=== PATIENT | female | born 1980 | race Caucasian/White ===

== ENCOUNTER → 2016-11-26 | Outpatient (CLI) | payer BC ==
[~2016-11-26] MED LIST: ALBUTEROL INHALER INH; EXCEDRIN PO; IMITREX PO; PERCOCET PO; SPIRIVA INH
--- NOTE | 2016-11-30 00:07 | ECWPNPC ---
PATIENT NAME: NAOMI HOLLIS : 1980 GENDER: FEMALE VISIT DATE: 11/26/2016 DISCHARGE DATE: 11/26/16 1437 VISIT LOCKED DATE TIME: PHYSICIAN: ALEX MCNEAL RESOURCE: ALEX MCNEAL REASON FOR APPOINTMENT 1. BACK HISTORY OF PRESENT ILLNESS NEW PATIENT CONSULT: WHEN DID YOUR PAIN FIRST START? . BRIEFLY DESCRIBE HOW YOUR PAIN STARTED? . HOW DOES YOUR PAIN CHANGE WITH TIME? . DOES YOUR PAIN AWAKEN YOU FROM SLEEP? . HOW MANY HOURS OF SLEEP DO YOU NORMALLY GET? . ANY DIAGNOSTIC TESTING? . FACILITY WHERE TESTS WERE DONE? ____. PAIN TREATMENT TREATMENT YES CANCER HAVE YOU EVER HAD ANY TYPE OF CANCER?NO NO. PAIN SCREENING: PATIENT HAS A COMPLAINT OF ACUTE OR CHRONIC PAIN YES FALL RISK SCREENING: SCREENING :NO FALLS IN THE PAST YEAR LITTLE INVENTORY: QUESTIONNAIRE ASSESSEDYES SCORE VALUE CALCULATED YES SCORE: 2/63 DENIES SUICIDAL OR HOMICIDAL IDEATION TODAY'S VISIT: NOTES: REFERRED BY NEUROLOGY FOR FURTHER EVALUATION OF BACK PAIN. REPRTS SHE WAS [employer]IVE [employer] IN 2000 AND FELL FROM A TOWER 50 FEET. WAS HOSPITALIZED FOR OVER 1 WEEK FOR BACK PAIN AT THAT TIME. THIS DID IMPROVE AND OVE RTHE LAST YEAR HAS BEEN EXPERIENCING MARKED INCREASE IN BACK WITH RADIATION TO BOTHANTERIOR THIGH. PAIN CAN RADIATION ALL THE WAY TO THE TOES, LEFT> RIGHT. IS HAVING INTERMITTANT NUMBNESS AND TINGLING IN THE FEET, PARTICULARLY WHEN SITTING OR STANDING. NO SPECIFIC WEAKNESS NOTED. HAS ATTENDED PHYSICAL THERAPY IN PAST. HAD SOME TYPE OF INJECTED TO THE SPINE DONE YEARS AGO IN [place] WHICH DID PROVODE SOME TEMPRARY RELIEF. . CURRENT MEDICATIONS TAKING ALBUTEROL SULFATE HFA 108 (90 BASE) MCG/ACT AEROSOL SOLUTION 2 PUFFS NEEDED INHALATION PRN, NOTES: PRN TAKING ADVAIR DISKUS 500-50 MCG/DOSE MISCELLANEOUS INHALATION , NOTES: PRN TAKING IMITREX 100 MG TABLET 1 TABLET NEEDED ORALLY TWICE A DAY, NOTES: PRN TAKING ZONISAMIDE 25 MG CAPSULE 2 CAPSULES ORALLY TWICE A DAY TAKING IBUPROFEN 800 MG TABLET 1 TABLET ORALLY THREE TIMES A DAY NOT-TAKING KEFLEX 500 MG CAPSULE 1 CAPSULE ORALLY TWICE A DAY NOT-TAKING TESSALON PERLES 100 MG CAPSULE 1 CAPSULE NEEDED ORALLY THREE TIMES A DAY MEDICATION LIST REVIEWED AND RECONCILED WITH THE PATIENT PAST MEDICAL HISTORY KIDNEY STONE ASTHMA CHRONIC PAIN MIGRAINES ALLERGIES N.K.D.A. SURGICAL HISTORY HYSTERECTOMY 04/2013 09/2010 APPENDECTOMY 1997 LAPROSCOPIC FOR ENDOMETRIOSIS 1998 RIGHT ESWL 12/06/13 FAMILY HISTORY FATHER: ALIVE MOTHER: ALIVE SIBLINGS: ALIVE SON(S): ALIVE DAUGHTER(S): ALIVE IDENTICAL TWIN SISTER OLDEST DAUGHTER IS BEING EVALUATED FOR HER MIGRAINES. 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 DIET: REGULAR. EXERCISE: WALKS, DAILY. MARITAL STATUS: . OTHERS AT HOME: SPOUSE, CHILDREN. PETS: DOG AND A CAT. ORIENTAL ORTHODOX: NO PREFERENCE. PSYCHOLOGICAL HX TREATMENTNO PAIN CLINIC PFS, CLERGY, PUBLIC HEALTH REFERRALS CLERGY REFERRAL NEEDED?NO WAS THE PROVIDER NOTIFIED OF ANY PERTINENT INFO?NO PFS REFERRAL NEEDED?NO PUBLIC HEALTH REFERRAL NEEDED?NO PATIENT: ____. ADVANCED DIRECTIVES HEALTH CARE PROXY?NO POWER OF ENVIRONMENTAL ENGINEERING ASSISTANT?NO HOSPITALIZATION/MAJOR DIAGNOSTIC PROCEDURE SURGICALY RELATED REVIEW OF SYSTEMS CONSTITUTIONAL: ANY CHANGE IN YOUR MEDICAL CONDITION? NO . CHILLS NO . FEVER NO . INFECTION: DO YOU HAVE NEW INFECTIONS? NO . DO YOU HAVE HISTORY OF MRSA? NO . MUSCULOSKELETAL: ANY NEW PATTERNS OF PAIN OR NUMBNESS? NO . SYTEMIC LUPUS NO . GASTROENTEROLOGY: ANY NEW CHANGE IN BOWEL CONTROL? NO . BARRETTS ESOPHAGUS NO . CIRRHOSIS NO . HEPATITIS NO . LIVER FAILURE NO . ACID REFLUX NO . UNEXPLAINED WEIGHT LOSS NO . GENITOURINARY: ANY NEW CHANGE IN BLADDER CONTROL? NO . IS THERE A CHANCE YOU COULD BE ? NO . HEMATOLOGY/LYMPH: DO YOU TAKE ANY BLOOD THINNERS? (FOR EXAMPLE- COUMADIN, PLAVIX, AGGRENOX, PLATEL, PRADAXA, OR XARELTO) NO . WHEN WAS YOUR LAST DOSE? DATE: TIME: . LOW PLATELET COUNT NO . SICKLE CELL DISEASE NO . VON WILLIEBRANDS NO . FACTOR V LEIDEN NO . THALLASEMIA NO . ANEMIA NO . EASY BRUISING NO . NEUROLOGY: MYAASTHENIA GRAVIS NO . MIGRAINES CURRENTLY BEING ACTIVELY FOLLOWED FOR THIS BY NEUROLOGY. MIGRAINES 2-3 EVENTS FOR WEEK WITH INCEEASE OVER LAST YEAR IN FREQUENCY AND INTENSITY. . CARDIOLOGY: DO YOU HAVE A PACEMAKER OR DEFIBRILLATOR? NO . ANGINA NO . HEART ATTACK NO . HEART SURGERY NO . CONGESTIVE HEART FAILURE/FLUID OVERLOAD NO . CHEST PAIN NO . HIGH BLOOD PRESSURE NO . IRREGULAR HEART BEAT NO . RESPIRATORY: HAVE YOU BEEN SICK IN THE PAST WEEK? NO . FEVER NO . FLU LIKE SYMPTOMS? NO . CPAP NO - WAITING FOR POST SLEEP APNEA STUDY FOLLOWUP . BYPAP NO . ASTHMA NO . EMPHYSEMA NO . CHRONIC LUNG DISEASES NO . SHORTNESS OF BREATH ON EXERTION NO . DO YOU USE ANY TYPE OF TOBACCO (SMOKE, SMOKELESS, CHEW)? NO . COUGH NO . SNORING NO . INTEGUMENTARY: DO YOU HAVE ANY RASHES OR OPEN SORES? NO . ALLERGIC/IMMUNO: ARE YOU ALLERGIC TO SHELLFISH OR IV DYE? NO . ANY NEW ALLERGIES? NO . PSYCHIATRIC: DO YOU HAVE THOUGHTS OF HURTING YOURSELF OR SOMEONE ELSE? NO . ARE YOU ABUSED, NEGLECTED, OR IN AN UNSAFE ENVIRONMENT? NO . ENDOCRINOLOGY: ARE YOU DIABETIC? NO . THYROID DISORDER NO . OTHER: DO YOU NEED ANY PRESCRIPTIONS? NO . IF YES, PLEASE LIST: ____ . ANY NEW PROBLEMS WITH YOUR MEDICATIONS? NO . WHEN DID YOU LAST EAT? ____ . WHEN DID YOU LAST DRINK? ____ . WHAT DID YOU LAST DRINK? ____ . NAME OF PERSON DRIVING YOU HOME? ____ . DO YOU HAVE ANY OTHER QUESTIONS OR CONCERNS NO . PSYCHOLOGY: ANXIETY FOLLOWS WITH BEHAVIORAL HEALTH . REVIEWED BY: PROVIDER: ALEX MUSTAFA . VITAL SIGNS WT 194 LBS, HT 63 IN, BMI 34.36 INDEX, BP 151/86 MM HG, HR 77 /MIN, RR 16 /MIN, TEMP 97.2 F, OXYGEN SAT % 95%, NA INITIALS SC 13:26. EXAMINATION GENERAL EXAMINATION: PSYCHALERT , ORIENTED X 3 , APPROPRIATE MOOD AND AFFECT , EXCELLANT HISTORIAN. HEENT:NORMOCEPHALIC, THYROID AREA FULLNESS BUT NO SPECIFIC THYROMEGY, NO LYMPHADENOPATHY. LUNGS:CLEAR TO AUSCULTATION BILATERALLY, NO WHEEZES, RALES OR RHONCHI. HEART:NORMAL S1S2, NO MURMURS, CLICK OR RUBS. ABDOMEN:SOFT, NON-TENDER/NON-DISTENDED, BOWEL SOUNDS PRESENT. MUSCULOSKELETAL:MUSCLE STRENGTH TESTING 5/5 BILATERAL LOWER EXTREMITIES. ABLE TO FLEX TO 30 DEGREES, EXTEND TO 15 DEGREES, ROTATE PPORLY ALL DUE TO PAIN AND STIFFNESS. SLR POSITIVE ON RIGHT AT 10 DEGREES. PAIN WITH BILATERAL PELVIC COMPRESSION IN CENTER LOW BACK. POINT TENDERNESS OVER BILATERAL SACRAL ILIAC JOINTS PAIN WITH PATRICKS TESTING BILATERALLY. POINT TENDERDENSS OVER LUMAR SPINOUS PROCESSES. FEW TRIGGER POINTS IDENTIFIED ACROSS THE SACRUM. ABLE TO RISE SLOWLY TO STANDING POSITION. POSTURE UPRIGHT. GAIT SLOW, WIDEBASED AND ANTALGIC. NEUROLOGIC EXAM:DTR'S 1+ IN BILATERAL UPPER EXTREMITIES, 2+ IN BILATERAL LOWER EXTREMITIES. NO SENSORY DEFICEIT TO LIGHT TOUCH. DIAGNOSTIC TESTS REVIEWEDEMG/NCS COMPLETED BY DR Broderick ANDRADE ON 10/01/16 DEMONSTRATED NORMAL STUDY OF THE BILATERAL LOWER EXTREMITIES. MRI OF LUMBAR SPINE COMPLETED 10/08/16 DEMONSTRATED MODERATE DEGENERATIVE DISC DIEASE AT L1-2 WITH SMALL CENTRAL DISC PROTRUSION. ALSO MODERATE DEGENERATIVE DISC DISEASE AT L4-5 WITH A MODERATE SIZE DISC EXTRUSION AND ASSOCUATED TEAR OR FISSURE IN THE POSTERIOR ANNULUS. ASSESSMENTS LUMBAR DISC DISPLACEMENT WITHOUT MYELOPATHY - M51.26 (PRIMARY) LUMBAR RADICULAR PAIN - M54.16 TREATMENT LUMBAR DISC DISPLACEMENT WITHOUT MYELOPATHY START TRAMADOL HCL TABLET, 50 MG, 1 TABLET NEEDED, ORALLY, EVERY 6 -8 HRS PRN PAIN MDD=3, 30 DAY(S), 90, REFILLS 0 CAUDAL/LUMBAR ALEX GUSTAFSON 11/26/2016 2:32:39 PM > L3-L4 NOTES: WALK TOLERATED, OPTION FOR EPIDURAL INJECTIONS WERE DISCUSSED WITH THE PATIENT. FDA CONCERNS AND WARNING WERE REVIEWED INCLUDING THE RISK OF BLEEDING, RISK OF INFECTION, RISK OF INCREASED PAIN OR NEURALGIA, AND RISK OF PARALYSIS. PATIENT'S QUESTIONS WERE ANSWERED AND HE/SHE WISHES TO MOVE FORWARD WITH EPIDURAL INJECTION. PROCEDURE CODES FA211 ESTABILISHED PATIENT [facility] FACILITY CHARGE DISPOSITION & COMMUNICATION FOLLOW UP AFTER INJECTION (REASON: CHECK AUTH FOR LESB) ELECTRONICALLY SIGNED BY TRAVIS GASPAR ON 11/29/2016 AT 08:53 AM EST DISCLAIMER : THIS IS A VISIT SUMMARY EXTRACTED FROM THE [employer] CHART. IT IS NOT A COPY OF THE [employer] PROGRESS NOTE. MTDD
== END ==
LOC: M PAIN 13:20
PROVIDERS: ATTEND Nurse Practitioner Family
DX: G89.21 Chronic pain due to trauma (principal); M51.26 Other intervertebral disc displacement, lumbar region; M54.16 Radiculopathy, lumbar region; J45.909 Unspecified asthma, uncomplicated; G43.909 Migraine, unspecified, not intractable, without status migrainosus; Z79.1 Long term (current) use of non-steroidal anti-inflammatories (NSAID); Z79.899 Other long term (current) drug therapy

== ENCOUNTER → 2016-12-24 | Outpatient (CLI) | payer BC ==
[~2016-12-24] MED LIST changes: +ISOVUE-M 300 61% 15ML VIAL (Q9967) As Ordered ONE; +LIDOCAINE 1% SDV INJ 30 ML VIAL As Ordered ONE; +diazePAM 5 MG TAB As Ordered ONE; +methylPREDNISolone SUSP 40 MG/ML (DEPO-medrol) VIAL (J1030) As Ordered ONE; +oxyCODONE 5MG TAB As Ordered ONE
--- NOTE | 2016-12-27 15:00 | REP ---
FLUOROSCOPIC GUIDED LUMBAR EPIDURAL INJECTION: 12/24/2016. Clinical history: Back pain. Findings: Two images from C-arm fluoroscopy provided to Dr. Gabriel of the pain clinic for lumbar epidural injection were noted. The needle tip is to the left of midline at the superior aspect of the L4 vertebral body and has epidural contrast adjacent to it. Second image shows the needle removed. Fluoroscopy time 14 seconds. Signed by Yg Olea MD 12/27/2016 05:42 P
--- NOTE | 2016-12-28 02:20 | ECWPNPC ---
PATIENT NAME: NAOMI SAMAYOA : 1980 GENDER: FEMALE VISIT DATE: 12/24/2016 DISCHARGE DATE: 12/24/16 1046 VISIT LOCKED DATE TIME: PHYSICIAN: LORENE FOSTER RESOURCE: LORENE FOSTER REASON FOR APPOINTMENT 1. LESB L3-L4 HISTORY OF PRESENT ILLNESS HISTORY OF PRESENT ILLNESS: PAIN THE PATIENT DESCRIBES THE PAIN... FALL RISK SCREENING: SCREENING :NO FALLS IN THE PAST YEAR CURRENT MEDICATIONS TAKING ALBUTEROL SULFATE HFA 108 (90 BASE) MCG/ACT AEROSOL SOLUTION 2 PUFFS NEEDED INHALATION PRN, NOTES: NOT RECENTLY TAKING ADVAIR DISKUS 500-50 MCG/DOSE MISCELLANEOUS INHALATION , NOTES: NOT RECENTLY TAKING IMITREX 100 MG TABLET 1 TABLET NEEDED ORALLY TWICE A DAY, NOTES: NOT RECENTLY TAKING ZONISAMIDE 25 MG CAPSULE 2 CAPSULES ORALLY TWICE A DAY, NOTES: NOT RECENTLY TAKING IBUPROFEN 800 MG TABLET 1 TABLET ORALLY THREE TIMES A DAY, NOTES: NOT RECENTLY TAKING TRAMADOL HCL 50 MG TABLET 1 TABLET NEEDED ORALLY EVERY 6 -8 HRS PRN PAIN MDD=3, NOTES: HASN'T USED YET NOT-TAKING KEFLEX 500 MG CAPSULE 1 CAPSULE ORALLY TWICE A DAY NOT-TAKING TESSALON PERLES 100 MG CAPSULE 1 CAPSULE NEEDED ORALLY THREE TIMES A DAY MEDICATION LIST REVIEWED AND RECONCILED WITH THE PATIENT PAST MEDICAL HISTORY KIDNEY STONE ASTHMA CHRONIC PAIN MIGRAINES ALLERGIES N.K.D.A. REVIEW OF SYSTEMS CONSTITUTIONAL: ANY CHANGE IN YOUR MEDICAL CONDITION? NO . CHILLS NO . FEVER NO . INFECTION: DO YOU HAVE NEW INFECTIONS? NO . DO YOU HAVE HISTORY OF MRSA? NO . MUSCULOSKELETAL: ANY NEW PATTERNS OF PAIN OR NUMBNESS? NO . GASTROENTEROLOGY: ANY NEW CHANGE IN BOWEL CONTROL? NO . GENITOURINARY: ANY NEW CHANGE IN BLADDER CONTROL? NO . IS THERE A CHANCE YOU COULD BE ? NO . HEMATOLOGY/LYMPH: DO YOU TAKE ANY BLOOD THINNERS? (FOR EXAMPLE- COUMADIN, PLAVIX, AGGRENOX, PLATEL, PRADAXA, OR XARELTO) NO . WHEN WAS YOUR LAST DOSE? DATE: TIME: . NEUROLOGY: HAVE YOU FALLEN IN THE PAST 6 MONTHS? NO . ANY NEW EXTREMITY NUMBNESS OR WEAKNESS? NO . CARDIOLOGY: DO YOU HAVE A PACEMAKER OR DEFIBRILLATOR? NO . RESPIRATORY: HAVE YOU BEEN SICK IN THE PAST WEEK? NO . FEVER NO . FLU LIKE SYMPTOMS? NO . COUGH NO . INTEGUMENTARY: DO YOU HAVE ANY RASHES OR OPEN SORES? NO . ALLERGIC/IMMUNO: ARE YOU ALLERGIC TO SHELLFISH OR IV DYE? NO . ANY NEW ALLERGIES? NO . PSYCHIATRIC: DO YOU HAVE THOUGHTS OF HURTING YOURSELF OR SOMEONE ELSE? NO . ARE YOU ABUSED, NEGLECTED, OR IN AN UNSAFE ENVIRONMENT? NO . ENDOCRINOLOGY: ARE YOU DIABETIC? NO . OTHER: DO YOU NEED ANY PRESCRIPTIONS? NO . IF YES, PLEASE LIST: ____ . ANY NEW PROBLEMS WITH YOUR MEDICATIONS? NO . WHEN DID YOU LAST EAT? ____12/23/16 . WHEN DID YOU LAST DRINK? ____12/23/16 . WHAT DID YOU LAST DRINK? ____PEPSI . NAME OF PERSON DRIVING YOU HOME? ____JOEL DINDL . DO YOU HAVE ANY OTHER QUESTIONS OR CONCERNS NO . REVIEWED BY: PROVIDER: . VITAL SIGNS WT 197 LBS, HT 63 IN, BMI 34.89 INDEX, BP 131/77 MM HG, HR 77 /MIN, RR 16 /MIN, TEMP 97.0 F, OXYGEN SAT % 99%, NA INITIALS SC09:15. ASSESSMENTS INTERVERTEBRAL DISC DISORDERS WITH RADICULOPATHY, LUMBAR REGION - M51.16 (PRIMARY) PROCEDURES PRE PROCEDURE DIAGNOSIS LUMBAR DISC DISORDER WITH RADICULOPATHY POST PROCEDURE DIAGNOSIS LUMBAR DISC DISORDER WITH RADICULOPATHY PROCEDURE LUMBAR EPIDURAL STEROID INJECTION UNDER FLUOROSCOPIC GUIDANCE SURGEON DR. LORENE FOSTER TRANSFORMER MECHANIC NONE ANESTHESIA LOCAL PRE PROCEDURE NOTE THE PATIENT HAS A HISTORY OF CHRONIC LOW BACK PAIN. I EVALUATE THE PATIENT AND REVIEWED THE CHART. I WENT OVER THE RISKS, ALTERNATIVES, AND BENEFITS ASSOCIATED WITH THIS PROCEDURE. THE PATIENT WOULD LIKE TO PROCEED AND GIVE CONSENT TO PERFORMED THE PROCEDURE. THE PATIENT DENIES UNEXPLAINABLE WEIGHT LOSS, FEVER, CHILLS, OR NEW CHANGES IN URINARY OR BOWEL CONTROL DESCRIPTION OF PROCEDURE THE PATIENT WAS BROUGHT TO THE PROCEDURE ROOM AND PLACED IN THE PRONE POSITION. THE LUMBOSACRAL AREA WAS CLEANED WITH BETADINE SOLUTION AND DRAPED ASEPTICALLY. THE PROCEDURE WAS DONE UNDER STERILE CONDITIONS. I CHECKED LATERALITY AND THE LEVEL WHERE THE PROCEDURE WAS GOING TO BE PERFORMED WITH THE PATIENT AND THE SUPPORTING STAFF AT THE MOMENT OF THE TIME OUT IN THE PROCEDURE ROOM. UNDER FLUOROSCOPIC GUIDANCE, THE TARGET POINT WAS SELECTED AT THE INTERLAMINAR LEVEL OF L4-L5. LIDOCAINE WAS USED TO NUMB THE SKIN AND THE SUBCUTANEOUS TISSUE BELOW IT. EPIDURAL TUOHY NEEDLE, 17-GAUGE, WAS ADVANCED UNDER FLUOROSCOPIC GUIDANCE AND FOLLOWING PATIENT FEEDBACK UNTIL THE EPIDURAL SPACE WAS REACHED, 7 CM DEEP INTO THE SKIN BY THE LOSS OF RESISTANCE TECHNIQUE. ISOVUE M DYE 30%, 0.25 ML, WAS INJECTED SHOWING ADEQUATE SPREAD OF THE DYE. THEN, A SOLUTION OF 3 ML OF NORMAL SALINE WITH DEPO-MEDROL 60 MG WAS INJECTED SLOWLY FOLLOWING PATIENT FEEDBACK. THERE WAS NO EVIDENCE OF BLOOD, PARESTHESIA OR CEREBROSPINAL FLUID DURING THE PROCEDURE. THE PATIENT WAS SENT TO THE RECOVERY ROOM. THE PATIENT WAS MOVING THE EXTREMITIES AND DOING WELL. THERE WAS NO COMPLICATION DURING THE PROCEDURE. FLUOROSCOPY TIME WAS 14 SECONDS POST PROCEDURE NOTE THE PATIENT WILL BE SEEN IN A FOLLOW UP IN THE NEXT FEW WEEKS. INSTRUCTIONS WERE GIVEN, QUESTIONS WERE ANSWERED, AND THE PATIENT EXPRESSED UNDERSTANDING AND AGREES WITH THE PLAN. I, DANIEL MEMBRENO, DOCUMENTED THE ABOVE INFORMATION ACTING A SCRIBE FOR DR. FOSTER. I, DR. FOSTER, HAVE REVIEWED THE ABOVE DOCUMENT, SCRIBED BY DANIEL MEMBRENO, AND I VERIFY THAT IT IS [facility] DIAGNOSTIC IMAGING [facility] FLUORO GUIDE SPINE INJECTION (PAIN)[id number] PROCEDURE CODES 10825 LUMBAR/SACRAL W/ IMAGING 6045F RADXPS IN END [id number] PXD DISPOSITION & COMMUNICATION FOLLOW UP 3 WEEKS ELECTRONICALLY SIGNED BY LORENE FOSTER MD ON 12/27/2016 AT 06:24 PM EDT DISCLAIMER : THIS IS A VISIT SUMMARY EXTRACTED FROM THE [employer] CHART. IT IS NOT A COPY OF THE [employer] PROGRESS NOTE. MTDD
== END | disposition home or self-care (01) ==
LOC: M PAIN 09:00
PROVIDERS: ATTEND Anesthesiology
DX: G89.29 Other chronic pain (principal); M51.16 Intervertebral disc disorders with radiculopathy, lumbar region; J45.909 Unspecified asthma, uncomplicated; G43.909 Migraine, unspecified, not intractable, without status migrainosus; Z87.442 Personal history of urinary calculi; Z79.899 Other long term (current) drug therapy; Z79.51 Long term (current) use of inhaled steroids
CPT/HCPCS: 62323; J1030; Q9967

== ENCOUNTER → 2017-01-12 | Outpatient (REF) | payer BC ==
[~2017-01-12] MED LIST changes: -ISOVUE-M 300 61% 15ML VIAL (Q9967) As Ordered ONE; -LIDOCAINE 1% SDV INJ 30 ML VIAL As Ordered ONE; -diazePAM 5 MG TAB As Ordered ONE; -methylPREDNISolone SUSP 40 MG/ML (DEPO-medrol) VIAL (J1030) As Ordered ONE; -oxyCODONE 5MG TAB As Ordered ONE
== END ==
LOC: M SFHCLERA 12:21
PROVIDERS: ATTEND Nurse Practitioner Family
DX: R50.9 Fever, unspecified (principal); R05 Cough

== ENCOUNTER → 2017-01-14 | Outpatient (CLI) | payer BC ==
--- NOTE | 2017-01-29 00:33 | ECWPNPC ---
PATIENT NAME: NAOMI SAMAYOA : 1980 GENDER: FEMALE VISIT DATE: 01/14/2017 DISCHARGE DATE: 01/14/17 1556 VISIT LOCKED DATE TIME: PHYSICIAN: ALEX MCNEAL RESOURCE: ALEX MCNEAL REASON FOR APPOINTMENT 1. POST PROCEDURE, BACK HISTORY OF PRESENT ILLNESS HISTORY OF PRESENT ILLNESS: PAIN THE PATIENT DESCRIBES THE PAIN... FALL RISK SCREENING: SCREENING :NO FALLS IN THE PAST YEAR TODAY'S VISIT: NOTES: S/P LESI AT L3-4. REPORTS NO CHANGE OR IMPROVEMENT POST PROCEDURE. REVIEWED DR FOSTER'S NOTE AND HE IS RECOMMENDING REPEAT AT L4-5. REPORTS NO CHANGE IN PAIN - RATES PAIN -05/12 WITH RADIATION INTO LEFT LEG WITH OCCASIONAL TO LEVEL OF THE FOOT. . CURRENT MEDICATIONS TAKING ALBUTEROL SULFATE HFA 108 (90 BASE) MCG/ACT AEROSOL SOLUTION 2 PUFFS NEEDED INHALATION PRN TAKING ADVAIR DISKUS 500-50 MCG/DOSE MISCELLANEOUS INHALATION TAKING IMITREX 100 MG TABLET 1 TABLET NEEDED ORALLY TWICE A DAY TAKING ZONISAMIDE 25 MG CAPSULE 2 CAPSULES ORALLY TWICE A DAY TAKING EXCEDRIN MIGRAINE NEEDED NOT-TAKING TRAMADOL HCL 50 MG TABLET 1 TABLET NEEDED ORALLY EVERY 6 -8 HRS PRN PAIN MDD=3, NOTES: PRN NOT-TAKING TAMIFLU 75 MG CAPSULE 1 CAPSULE ORALLY DAILY NOT-TAKING IBUPROFEN 800 MG TABLET 1 TABLET ORALLY THREE TIMES A DAY, NOTES: NOT RECENTLY NOT-TAKING KEFLEX 500 MG CAPSULE 1 CAPSULE ORALLY TWICE A DAY NOT-TAKING TESSALON PERLES 100 MG CAPSULE 1 CAPSULE NEEDED ORALLY THREE TIMES A DAY MEDICATION LIST REVIEWED AND RECONCILED WITH THE PATIENT PAST MEDICAL HISTORY KIDNEY STONE ASTHMA CHRONIC PAIN MIGRAINES ALLERGIES N.K.D.A. SOCIAL HISTORY GENERAL: PAIN CLINIC PFS, CLERGY, PUBLIC HEALTH REFERRALS CLERGY REFERRAL NEEDED?NO WAS THE PROVIDER NOTIFIED OF ANY PERTINENT INFO?NO PFS REFERRAL NEEDED?NO PUBLIC HEALTH REFERRAL NEEDED?NO PATIENT: ____. HOSPITALIZATION/MAJOR DIAGNOSTIC PROCEDURE SURGICALY RELATED REVIEW OF SYSTEMS CONSTITUTIONAL: ANY CHANGE IN YOUR MEDICAL CONDITION? NO . CHILLS NO . FEVER NO . INFECTION: DO YOU HAVE NEW INFECTIONS? NO . DO YOU HAVE HISTORY OF MRSA? NO . MUSCULOSKELETAL: ANY NEW PATTERNS OF PAIN OR NUMBNESS? NO . GASTROENTEROLOGY: ANY NEW CHANGE IN BOWEL CONTROL? NO . GENITOURINARY: ANY NEW CHANGE IN BLADDER CONTROL? NO . IS THERE A CHANCE YOU COULD BE ? NO . HEMATOLOGY/LYMPH: DO YOU TAKE ANY BLOOD THINNERS? (FOR EXAMPLE- COUMADIN, PLAVIX, AGGRENOX, PLATEL, PRADAXA, OR XARELTO) NO . WHEN WAS YOUR LAST DOSE? DATE: TIME: . NEUROLOGY: HAVE YOU FALLEN IN THE PAST 6 MONTHS? NO . ANY NEW EXTREMITY NUMBNESS OR WEAKNESS? NO . CARDIOLOGY: DO YOU HAVE A PACEMAKER OR DEFIBRILLATOR? NO . RESPIRATORY: HAVE YOU BEEN SICK IN THE PAST WEEK? YES, FLU HAD RUN THROUGH THE FAMILY AND EVERYONE IS WELL NOW . FEVER NO . FLU LIKE SYMPTOMS? NO . COUGH NO . INTEGUMENTARY: DO YOU HAVE ANY RASHES OR OPEN SORES? NO . ALLERGIC/IMMUNO: ARE YOU ALLERGIC TO SHELLFISH OR IV DYE? NO . ANY NEW ALLERGIES? NO . PSYCHIATRIC: DO YOU HAVE THOUGHTS OF HURTING YOURSELF OR SOMEONE ELSE? NO . ARE YOU ABUSED, NEGLECTED, OR IN AN UNSAFE ENVIRONMENT? NO . ENDOCRINOLOGY: ARE YOU DIABETIC? NO . OTHER: DO YOU NEED ANY PRESCRIPTIONS? NO . IF YES, PLEASE LIST: ____ . ANY NEW PROBLEMS WITH YOUR MEDICATIONS? NO . WHEN DID YOU LAST EAT? ____ . WHEN DID YOU LAST DRINK? ____ . WHAT DID YOU LAST DRINK? ____ . NAME OF PERSON DRIVING YOU HOME? ____ . DO YOU HAVE ANY OTHER QUESTIONS OR CONCERNS DOES NOT FEEL THAT EPIDURAL HELPED . REVIEWED BY: PROVIDER: ALEX MUSTAFA . VITAL SIGNS WT 193.6 LBS, HT 63 IN, BMI 34.29 INDEX, BP 141/94 MM HG, HR 94 /MIN, RR 16 /MIN, TEMP 97.9 F, OXYGEN SAT % 96%, NA INITIALS SC 15:18, REVIEWED BY: NL. EXAMINATION GENERAL EXAMINATION: PSYCHALERT , ORIENTED X 3 , APPROPRIATE MOOD AND AFFECT , EXCELLANT HISTORIAN. LUNGS:CLEAR TO AUSCULTATION BILATERALLY, NO WHEEZES, RALES OR RHONCHI. HEART:HEART RATE REGULAR. MUSCULOSKELETAL:MUSCLE STRENGTH TESTING 5/5 BILATERAL LOWER EXTREMITIES.POINT TENDERNESS OVER BILATERAL SACRAL ILIAC JOINTS. POINT TENDERDENSS OVER LUMAR SPINOUS PROCESSES. FEW TRIGGER POINTS IDENTIFIED ACROSS THE SACRUM BILATERALLY. ABLE TO RISE SLOWLY TO STANDING POSITION. POSTURE UPRIGHT. GAIT SLOW, WIDEBASED AND ANTALGIC AND STIF. NEUROLOGIC EXAM:DTR'S 1+ IN BILATERAL UPPER EXTREMITIES, 2+ IN BILATERAL LOWER EXTREMITIES. NO SENSORY DEFICEIT TO LIGHT TOUCH. ASSESSMENTS LUMBAR DISC DISPLACEMENT WITHOUT MYELOPATHY - M51.26 (PRIMARY) LUMBAR RADICULAR PAIN - M54.16 TREATMENT LUMBAR DISC DISPLACEMENT WITHOUT MYELOPATHY REFILL TRAMADOL HCL TABLET, 50 MG, 1 TABLET NEEDED, ORALLY, EVERY 6 -8 HRS PRN PAIN MDD=3, 30 DAY(S), 90, REFILLS 0, NOTES: PRN START NAPROSYN TABLET, 500 MG, 1 TABLET NEEDED, ORALLY, EVERY 12 HRS, 30 DAY(S), 60 TABLET, REFILLS 1 CAUDAL/LUMBAR EPIDURALALEX MCNEAL 01/14/2017 3:37:04 PM > INTRALAMINAR - L4-5 NOTES: LUMBAR EPIDURAL INJECTION: YOUR PROCEDURE MATERIAL WAS PRINTED. PREVENTIVE MEDICINE GAVE INFO ON EPIDURAL AND PRE PROCEDURE INFORMATION. PROCEDURE CODES FA211 ESTABILISHED PATIENT [facility] CHARGE DISPOSITION & COMMUNICATION FOLLOW UP AFTER INJECTION (REASON: CHECK AUT FOR L4-5 INTRALAMIAR SHEEBA) ELECTRONICALLY SIGNED BY TRAVIS GASPAR ON 01/28/2017 AT 01:39 PM EDT DISCLAIMER : THIS IS A VISIT SUMMARY EXTRACTED FROM THE [employer] CHART. IT IS NOT A COPY OF THE [employer] PROGRESS NOTE. RENE
== END ==
LOC: M PAIN 14:40
PROVIDERS: ATTEND Nurse Practitioner Family
DX: G89.29 Other chronic pain (principal); M51.26 Other intervertebral disc displacement, lumbar region; M54.16 Radiculopathy, lumbar region; J45.909 Unspecified asthma, uncomplicated; G43.909 Migraine, unspecified, not intractable, without status migrainosus; Z87.442 Personal history of urinary calculi; Z79.899 Other long term (current) drug therapy; Z79.51 Long term (current) use of inhaled steroids

== ENCOUNTER → 2017-11-10 | Outpatient (REF) | payer BC | LOC: M SFHCLERA 09:37 | DX: J02.9 Acute pharyngitis, unspecified (principal) ==

== ENCOUNTER → 2018-12-11 | Outpatient (REF) | payer BC | LOC: M SFHCLERA 15:57 | PROVIDERS: ATTEND Physician Assistant | DX: R50.9 Fever, unspecified (principal) ==

== ENCOUNTER → 2025-01-07 | Outpatient (REF) | LOC: M PLAIMG 08:39 | PROVIDERS: ATTEND Internal Medicine | DX: R06.02 Shortness of breath (principal) ==